=== PATIENT | female | born 1955 | race Caucasian/White ===

== ENCOUNTER → 2018-03-12 | Outpatient (CLI) | payer MEDICARE ==
[~2018-03-12] MED LIST: AMBIEN10 MG PO; CELEXA20 MG PO; CRESTOR5 MG PO; EPINEPHRINE HCL INJ 1 MG/ML AMP ONE; HYDROCODON-ACE1 EAC9 PO; LEVOTHYROXINE88 MCG PO; MACROBID 100 M100 MG PO; ULTRAM50 MG PO
--- NOTE | 2018-03-12 12:37 | Diagnostic Imaging Report ---
EXAMINATION: CT of the abdomen and pelvis without contrast. TECHNIQUE: Spiral CT images of the abdomen and pelvis were performed from the lung bases to the lesser trochanters. No intravenous contrast was given per renal stone protocol. Coronal and sagittal reformatted images were obtained. Dose reduction techniques used: Automated exposure control, adjustment of the mAs and/or kVp according to patient size, standardized low-dose protocol, and/or iterative reconstruction technique. DLP: 214.76 mGy-cm COMPARISON: None. CLINICAL HISTORY: Hematuria with history of stones DISCUSSION: ABSENCE OF INTRAVENOUS CONTRAST DECREASES SENSITIVITY FOR DETECTION OF FOCAL LESIONS AND VASCULAR PATHOLOGY. ABDOMEN/PELVIS: LOWER THORAX: Unremarkable. Distal esophagus is mildly dilated and fluid/air-filled. HEPATOBILIARY:No focal hepatic lesions. No biliary ductal dilation. The gallbladder is normal. SPLEEN: No splenomegaly. PANCREAS: No focal masses or ductal dilatation. ADRENALS: No adrenal nodules. KIDNEYS/URETERS: There is a single small 1-2 mm upper pole right renal stone. No hydronephrosis or solid mass lesions. PELVIC ORGANS/BLADDER: The bladder is normal. Pelvic calcification on the right appears outside of the bladder or uterus. PERITONEUM/RETROPERITONEUM: No free air or fluid. LYMPH NODES: No intra-abdominal,retroperitoneal, pelvic or inguinal lymphadenopathy. VESSELS: Vascular calcification present. GI TRACT: No distention or wall thickening. BONES AND SOFT TISSUES: No bony destructive lesions. No soft tissue abnormalities. IMPRESSION: 1. Small nonobstructing right renal stone. 2. Dilated distal esophagus. Signed by: Dr. Harsha Staley DO on 03/12/2018 12:33 PM
== END ==
LOC: CT 11:28
PROVIDERS: ATTEND Urology
DX: N20.0 Calculus of kidney (principal)
CPT/HCPCS: 74176